=== PATIENT | male | born 1995 | race Caucasian/White ===

== ENCOUNTER 2017-06-08 12:44 | Emergency (ER) | payer BC ==
[~2017-06-08] VITALS: Ht 167.6 cm; Wt 61.0 kg
[2017-06-08 12:46] VITALS: TEMP 36.7; Ht 167.6 cm; Wt 61.0 kg
--- NOTE | 2017-06-08 13:50 | DIAGNOSTIC IMAGING REPORT ---
(TESTICULAR) SCROTUM-CONT HISTORY: Pain left testicular pain eval for mass/torsion COMPARISON: None. FINDINGS: Right testis: Maximum dimension 4.9 cm. Normal vascular flow. Small hydrocele. Left testis: Maximum dimension 4.6 cm. Normal vascular flow. Small hydrocele. IMPRESSION: Small bilateral hydroceles. Normal testis. The above report was generated using voice recognition software. It may contain grammatical, syntax or spelling errors. Electronically signed by: Joe Carrizales M.D. 06/08/2017 1:49 PM Dictated Date/Time: 06/08/2017 1:48 PM
[2017-06-08] MEDS ORDERED: CEFTRIAXONE SOD 350MG/ML 1 GM VIAL IM SCH (14:00)
[2017-06-08] MEDS ORDERED: CEFTRIAXONE SOD INJ 250 MG/ML VIAL IM ONE (14:00)
[2017-06-08] MEDS ORDERED: DOXY100C2 PO (14:07)
[2017-06-08] MEDS ORDERED: DOXYCYCLINE HYCLATE 100 MG CAP PO ONE (14:15)
[2017-06-08 14:46] VITALS: BP 110/55; PULSE 71; O2SAT 97
--- NOTE | 2017-06-08 15:26 | Pharmacy Progress Note ---
ED Pharmacist Progress Note Date of Service: June 08, 2017. Rx called to [facility] ([phone]) per patient's request: Doxycycline 100mg PO BID, # 20, No refills. Auth Dr Abhishek Coburn.
--- NOTE | 2017-06-08 17:18 | EMERGENCY ROOM VISIT NOTE ---
History Report prepared by Odin: Yaritza Blandon Under the Supervision of: Dr. Juaquin Coburn M.D. First contact with patient: 12:50 Chief Complaint: TESTICULAR PAIN Stated Complaint: SEVERE PAIN IN LEFT TESTICLE History of Present Illness The patient is a 21 year old male who presents to the Emergency Room with complaints of worsening left testicular pain beginning two days ago. He denies any injury or trauma to his testicles. The patient describes his pain as an ache. He reports increased urinary urgency occurring 5 days ago which has since resolved. He denies any fever, vomiting, penile discharge, urinary burning, chest pain, abdominal pain, or back pain. The patient is sexually active and he states he always uses protection except over spring when he had unprotected sex with his girlfriend. He denies any history of STIs. Source of History: patient Onset: two days ago Position: other (left testicular) Quality: ache Timing: worsening Modifying Factors (Relieving): other (none) Associated Symptoms: No fevers, No vomiting, No abdominal pain, No back pain , No urinary symptoms Review of Systems See HPI for pertinent positives & negatives. A total of 10 systems reviewed and were otherwise negative. Past Medical & Surgical Medical Problems: (1) No Known Active Medical Problems Family History Patient reports no known family medical history. Social History Smoking Status: Never Smoker Occupation Status: student Current/Historical Medications Scheduled Doxycycline Hyclate (Vibramycin), 100 MG PO BID Allergies Coded Allergies: Amoxicillin (Unverified Allergy, Intermediate, ., 06/08/17) 06/08/17: per RN patient states rash as a child (no hives) Penicillins (Unverified Allergy, Intermediate, ., 06/08/17) 06/08/17: per RN patient states rash as a child (no hives) Physical Exam Vital Signs Date Time Temp Pulse Resp B/P (MAP) Pulse Ox O2 Delivery O2 Flow Rate FiO2 06/08/17 14:46 71 110/55 97 06/08/17 12:46 36.7 90 18 124/71 97 Room Air Physical Exam Constitutional: Vital signs reviewed. Eyes: Pupils are equal round reactive to light. Conjunctiva are noninjected. ENT: Pharynx is clear without erythema or exudate. Mucous membranes are moist. Neck supple without meningeal signs. Respiratory: Clear to auscultation bilaterally. Breath sounds are equal bilaterally. Cardiovascular: Regular rate and rhythm. No rubs or gallops. GI: Soft, nondistended and nontender. Bowel sounds are present. Musculoskeletal: No peripheral edema. No CVA tenderness. Integumentary: No cyanosis. Neurological: The patient is awake and alert. No focal deficits. : Nontender testicles, no swelling or erythema. No inguinal hernias. Normal cremasteric reflexes. Psychiatric: Normal affect. Medical Decision & Procedures ER Provider Diagnostic Interpretation: Radiology results as stated below per my review and the radiologist's interpretation: (TESTICULAR) SCROTUM-CONT FINDINGS: Right testis: Maximum dimension 4.9 cm. Normal vascular flow. Small hydrocele. Left testis: Maximum dimension 4.6 cm. Normal vascular flow. Small hydrocele. IMPRESSION: Small bilateral hydroceles. Normal testis. The above report was generated using voice recognition software. It may contain grammatical, syntax or spelling errors. Electronically signed by: Joe Carrizales M.D. Laboratory Results Test 06/08/17 12:57 06/08/17 13:05 Urine Color YELLOW Urine Appearance CLEAR (CLEAR) Urine pH 5.0 (4.5-7.5) Urine Specific [place] 1.025 (1.000-1.030) Urine Protein NEG (NEG) Urine Glucose (UA) NEG (NEG) Urine Ketones NEG (NEG) Urine Occult Blood NEG (NEG) Urine Nitrite NEG (NEG) Urine Bilirubin NEG (NEG) Urine Urobilinogen NEG (NEG) Urine Leukocyte Esterase NEG (NEG) Laboratory results as reviewed by me. Medications Administered Medications (Trade) Dose Ordered Sig/[facility] Route Start Time Stop Time Status Last Admin Dose Admin Doxycycline Hyclate (Vibramycin Cap) 100 mg ONE ONCE PO 06/08/17 14:15 06/08/17 14:16 DC 06/08/17 14:16 100 MG Ceftriaxone Sodium (Rocephin Im) 250 mg TODAY@1400 IM 06/08/17 14:00 06/08/17 15:24 DC 06/08/17 14:28 250 MG ED Course 1251: The patient was evaluated in room C3. A complete history and physical exam was performed. 1356: I updated the patient and his mother on his test results. He said he was at [facility] two days ago and was placed on Bactrim for a UTI. He reports his UA was negative when he was put on the antibiotic. The patient reports his allergy to penicillin was a rash ten years ago. 1400: Ordered Rocephin Inj 250 mg IM. 1415: Ordered Vibramycin Cap 100 mg PO. 1417: Upon reevaluation, the patient appeared to have improvement of his symptoms. I discussed tonight's findings with him. He verbalized agreement of the treatment plan. The patient was discharged home. Medical Decision This is a 21-year-old male who presents with testicular pain. Differential diagnosis includes testicular mass, epididymitis, orchitis, STI, variceal, torsion. I did perform a limited focused review of portions of the patient's old chart on the electronic medical record. The patient has had no recent pertinent visits to this hospital. I did evaluate the patient as noted above. Patient is presenting with testicular pain for 2 days. He did have some urinary frequency without burning 5 days ago. He states that he was seen at [facility] who did a UA which was negative for infection. They did put him on Bactrim. IV access was established. I did collect a GC and chlamydia swab which was sent to the lab. I did order and personally review the patient's urinalysis as described above. There is no evidence of infection. I did order an ultrasound of the scrotum. I did review the images myself as well as the radiology report as described above. He does have small bilateral hydroceles but no acute process. I did discuss the test results with the patient and his mother. I did recommend treatment empirically with antibiotics. He was told to stop the Bactrim given he has had 2 negative UAs. I did treat him with ceftriaxone 250 mg IM and doxycycline. He was discharged with a prescription for doxycycline. He was advised to follow-up with his doctor. Medication Reconcilliation Current Medication List: was personally reviewed by me Blood Pressure Screening Patient's blood pressure: Normal blood pressure Impression Primary Impression: Left testicular pain Scribe Attestation The scribe's documentation has been prepared under my direct and personally reviewed by me in its entirety. I confirm that the note above accurately reflects all work, treatment, procedures, and medical decision making performed by me. Departure Information Dispostion Home / Self-Care Prescriptions Doxycycline Hyclate (VIBRAMYCIN) 100 Mg Cap 100 MG PO BID for 10 Days, #20 CAP Prov: Juaquin Coburn M.D. 06/08/17 Forms HOME CARE DOCUMENTATION FORM, IMPORTANT VISIT INFORMATION, WORK / SCHOOL INSTRUCTIONS Patient Instructions ED Testicular Pain [facility], My [facility] Additional Instructions You have been examined and treated today on an emergency basis only. This is not a substitute for, or an effort to provide, complete comprehensive medical care. It is impossible to recognize and treat all injuries or illnesses in a single emergency department visit. It is therefore important that you follow up closely with your physician. Call as soon as possible for an appointment. Return for worsening symptoms or if you develop fever, vomiting, abdominal pain , redness or swelling to your testicle or any other concerning symptoms. Stop the Bactrim. Take doxycycline instead.
== END 2017-06-08 14:47 | disposition home or self-care (01) ==
LOC: C.EDB 12:45 → C.EDC 14:47
DX: N50.812 Left testicular pain (principal); N43.3 Hydrocele, unspecified; Z88.0 Allergy status to penicillin; Z88.1 Allergy status to other antibiotic agents